=== PATIENT | female | born 1995 | race Caucasian/White ===

== ENCOUNTER 2020-01-15 13:06 | Emergency (ER) | payer SELFPAY ==
[~2020-01-15] VITALS: Ht 157.5 cm; Wt 93.2 kg
[2020-01-15 13:21] VITALS: Ht 157.5 cm; Wt 93.2 kg
[2020-01-15] MEDS ORDERED: TAMIFLU75 MG PO (15:10)
[2020-01-15] MEDS ORDERED: MUCINEX DM ER1 EAC1 PO (15:10)
[2020-01-15 15:18] VITALS: BP 138/86
== END 2020-01-15 15:19 | disposition home or self-care (01) ==
LOC: D.ER 13:06
DX: J11.1 Influenza due to unidentified influenza virus with other respiratory manifestations (principal)

== ENCOUNTER 2020-08-03 02:46 | Emergency (ER) | payer SELFPAY ==
[~2020-08-03] VITALS: Ht 157.5 cm; Wt 93.0 kg
[~2020-08-03 02:46] MED LIST: MUCINEX DM ER1 EAC1 PO; TAMIFLU75 MG PO
[2020-08-03 02:55] VITALS: BP 144/89; Ht 157.5 cm; Wt 93.0 kg
[2020-08-03 03:22] LABS: BILIRUBIN NEGATIVE (NEGATIVE); KETONE NEGATIVE (NEGATIVE); NITRITE NEGATIVE (NEGATIVE); UROBILINOGEN NORMAL mg/dL (< 2)
[2020-08-03 03:23] LABS: HCG URINE NEGATIVE (NEGATIVE)
[2020-08-03] MEDS ORDERED: CHRONULAC30 ML PO (04:37)
[2020-08-04] MEDS ORDERED: LINZESS145 MCG PO (21:59)
== END 2020-08-03 05:03 | disposition home or self-care (01) ==
LOC: D.ER 02:46
PROVIDERS: Family Medicine
DX: K59.00 Constipation, unspecified (principal); R10.9 Unspecified abdominal pain

== ENCOUNTER 2020-08-04 17:21 | Emergency (ER) | payer BC ==
[~2020-08-04 17:21] MED LIST changes: +CHRONULAC30 ML PO
[2020-08-04 17:32] VITALS: Ht 157.5 cm
[2020-08-04 19:41] LABS: BASOPHILS 0.1 % (0-2); EOSINOPHILS 0.1 % (0-7); HEMATOCRIT 39.9 % (36.0-48.0); HEMOGLOBIN 13.4 g/dL (12-16); IMMATURE GRANULOCYTES 0.2 % (0-5); LYMPHOCYTES 24.1 % (15-50); MCH 29.1 pg (26.0-34.0); MCHC 33.6 g/dL (31.0-37.0); MCV 86.7 fL (80.0-100.0); MONOCYTES 5.9 % (2-11); NEUTROPHILS 69.6 % (40-80); PLATELET COUNT 318 10x3/uL (130-400); RDW 12.7 % (11.5-14.5); WBC 9.6 10x3/uL (4.8-10.8)
[2020-08-04 19:45] LABS: BILIRUBIN NEGATIVE (NEGATIVE); KETONE NEGATIVE (NEGATIVE); NITRITE NEGATIVE (NEGATIVE); UROBILINOGEN NORMAL mg/dL (< 2)
[2020-08-04 20:02] LABS: CALC OSMOLALITY 269 mosm/kg (275-300); CALCIUM 9.8 mg/dL (8.5-10.1); CARBON DIOXIDE 25.9 mmol/L (21.0-32.0); CHLORIDE - SERUM 101 mmol/L (98-107); CREATININE - SERUM 0.8 mg/dL (0.6-1.3); GLUCOSE 90 mg/dL (74-106); POTASSIUM - SERUM 3.9 mmol/L (3.5-5.1); SODIUM 136 mmol/L (136-145); UREA NITROGEN 8 mg/dL (7-18); eGFR NON AFRICAN AMERICAN > 90 mL/min (90-120)
[2020-08-04 20:11] LABS: ALBUMIN 4.2 g/dL (3.4-5.0); ALKALINE PHOSPHATASE 68 U/L (30-120); ALT (SGPT) 21 U/L (10-68); BILIRUBIN - TOTAL 0.31 mg/dL (0.2-1.3); PROTEIN - SERUM 8.7 g/dL (6.4-8.2)
[2020-08-04] MEDS ORDERED: LINZESS145 MCG PO (21:59)
[2020-08-04 22:53] VITALS: BP 128/79
== END 2020-08-04 22:53 | disposition home or self-care (01) ==
LOC: D.ER 17:21
PROVIDERS: Emergency Medicine
DX: K59.00 Constipation, unspecified (principal)